=== PATIENT | female | born 1950 | race Caucasian/White ===

== ENCOUNTER 2020-06-17 13:21 | Outpatient (CLI) | payer MEDICARE | END 2020-06-17 23:59 | disposition home or self-care (01) | LOC: CFH 13:21 | PROVIDERS: ATTEND Psychiatry & Neurology Neurology | DX: Z02.9 Encounter for administrative examinations, unspecified (principal) ==

== ENCOUNTER 2020-06-25 09:08 | Outpatient (CLI) | payer MEDICARE ==
[2020-06-25] MEDS ORDERED: FENTANYL PF 100 MCG/2ML ONE (10:52)
[2020-06-25] MEDS ORDERED: FLUMAZENIL 0.1 MG/1 ML, 5ML ONE (10:53)
[2020-06-25] MEDS ORDERED: NALOXONE 1 MG/ML, 2ML ONE (10:53)
[2020-06-25] MEDS ORDERED: MIDAZOLAM 1 MG/ML, 5ML ONE (10:53)
== END 2020-06-25 23:59 | disposition home or self-care (01) ==
LOC: RAD 09:08
PROVIDERS: ATTEND Psychiatry & Neurology Neurology
DX: R25.1 Tremor, unspecified (principal); I10 Essential (primary) hypertension
CPT/HCPCS: 70551; 99156; 99157; J2250; J3010; J2310